=== PATIENT | female | born 1940 | race Caucasian/White ===

== ENCOUNTER → 2016-07-30 | Outpatient (CLI) | payer OTHER ==
[~2016-07-30] MED LIST: ASPI81TA28 PO; CHOL100010 PO; CLOB-65 EXT; FLEC100T21 PO; HYDR200T5 PO; HYDR25TA5 PO; METO50TA17 PO; MULT-506 PO; OMG3 PO; SIMV20TA2 PO; WARF1TAB6 PO; WARF2TAB8 PO
[2016-07-30 17:56] LABS: BLOOD UREA NITROGEN 15 mg/dl (7-18); BUN/CREATININE RATIO 17.9 (10-20); CALCIUM 9.6 mg/dl (8.5-10.1); CARBON DIOXIDE 31 mmol/L (21-32); CHLORIDE 102 mmol/L (98-107); CREATININE 0.86 mg/dl (0.60-1.20); GLUCOSE 96 mg/dl (70-99); SODIUM 140 mmol/L (136-145)
== END | disposition home or self-care (01) ==
LOC: C.LABMFLN 09:20
PROVIDERS: ATTEND Internal Medicine Cardiovascular Disease
DX: I10 Essential (primary) hypertension (principal); I47.1 Supraventricular tachycardia

== ENCOUNTER 2023-09-29 07:54 | Observation (INO) ==
--- NOTE | 2023-09-29 08:17 | Emergency Department Note ---
Impression & Plan Chest pain, HTN (hypertension), Acute hyponatremia ED Provider Note NAME: ALEX SERVIN AGE: 83 SEX: F : 1940 ARRIVES VIA: Walk-In INFORMANT: Patient ED PROVIDER(S): Kobi Murphy DO CHIEF COMPLAINT: Chest pressure HPI: Patient is an 83-year-old female with a past medical history of A-fib, depression, anxiety, SVT who presents to the ER for chest pressure. She notes that she woke up around 330 to 4 AM. She had chest pressure in the middle of her chest that lasted for about 30 minutes. She had tingling in her bilateral arms. This lasted for a total of 30 minutes and then both resolved. She denies any belly pain, nausea, vomiting, or diarrhea. No dysuria, urgency, or frequency. No other exacerbating or remitting factors. ADDITIONAL HISTORY OBTAINED: Per HPI Chronic Medical/Social Conditions Affecting Care: Per HPI PAST MEDICAL HISTORY:See Below PAST SURGICAL HISTORY:See Below FAMILY HISTORY:See Below SOCIAL HISTORY:See Below HOME MEDICATIONS:See Below ALLERGIES:See Below VITALS:See Below PHYSICAL EXAMINATION: GENERAL: Sitting up in bed, alert, well appearing, well nourished, no distress, non-toxic EYE EXAM: normal conjunctiva. OROPHARYNX: no exudate, no erythema, lips, buccal mucosa, and tongue normal and mucous membranes are moist NECK: supple, no nuchal rigidity, no adenopathy, non-tender LUNGS: Clear to auscultation. Normal chest wall mechanics HEART: no murmurs, S1 normal and S2 normal ABDOMEN: abdomen soft, non-tender, normo-active bowel sounds, no masses, no rebound or guarding. BACK: Back is symmetrical on inspection and there is no deformity, no midline tenderness, no CVA tenderness. SKIN: no rashes and no bruising UPPER EXTREMITIES: upper extremities are grossly normal. LOWER EXTREMITIES: No pitting edema. Calves are equal bilaterally NEURO EXAM: Normal sensorium, cranial nerves II-XII grossly intact, normal speech, no gross weakness of arms, no gross weakness of legs. MEDICAL DECISION MAKING: Patient is a 3-year-old female who presents ER for the above-stated complaint. IV was established blood work was obtained. Labs show no significant leukocytosis or anemia. INR unremarkable. BMP with mild hyponatremia at 130. LFTs bilirubin was unremarkable. Troponins were negative x 2. Lipase was normal. Chest x-ray was clean. Patient was significantly hypertensive with systolic pressures in the 200s and Vesselon was placed on Nitropaste. Trended down to 180s. I discussed case with the hospitalist for further evaluation management treatment. Consults/Care Managements Discussions: Per [facility] Triage Nursing notes reviewed. Limited review of prior medical records performed Vital Signs: reviewed and remarkable for HTN Differential diagnosis: Cardiac ischemia, aortic dissection, pulmonary embolism, pneumothorax, pneumonia, pericarditis, myocarditis, esophageal rupture, GERD, cholecystitis, pancreatitis, musculoskeletal, as well as other pathologies. ER treatment provided: See below Diagnostics interpreted by me include EKG and cardiac monitoring as listed below: -Cardiac Monitoring: An order was placed for continuous cardiac monitoring. The monitor shows a rate of 80 with sinus rhythm. -ECG: Sinus rhythm rate of 75 Normal axis No PVCs QTc [address] changes in the lateral leads -Laboratory studies:Interpreted by me as stated above in MDM and shown below. Imaging studies: Xrays: As interpreted by me: Portable AP upright 1 view of the chest shows no focal infiltrate CTs show: none Procedures:none Critical Care: None Past Med/Surg History Problem List (Updated 09/29/23 @ 13:03 by Kobi Murphy DO) Acute hyponatremia (Acute) HTN (hypertension) (Acute) Chest pain (Acute) Hypercalcemia New onset a-fib Myalgia Frequent urination Bronchitis Wheeze Rash and nonspecific skin eruption Venous stasis dermatitis Anticoagulant long-term use Depression Multiple thyroid nodules Menopause Antiphospholipid antibody syndrome (Chronic) Anxiety (Chronic) Zenker diverticulum Varicose vein of leg Dyslipidemia HTN (hypertension) (Chronic) Paroxysmal atrial tachycardia SVT (supraventricular tachycardia) (Chronic) Medical History Wheeze Venous stasis dermatitis Hypokalemia Zenker diverticulum Varicose vein of leg Dyslipidemia Paroxysmal atrial tachycardia HTN (hypertension) Anxiety SVT (supraventricular tachycardia) Antiphospholipid antibody syndrome Surgical History History of cholecystectomy History of appendectomy H/O knee surgery H/O tubal ligation H/O: hysterectomy Family History Mother Colorectal cancer, Onset Age: 83 Father Heart disease Sister Cancer Leukemia Denies family history of Ovarian cancer Prostate cancer Myocardial infarction Breast cancer Social History (Updated 07/20/23 @ 09:34 by Vonnie Rutherford LPN) Smoking Status: Never smoker Second Hand Exposure: No; Do You Dip or Chew Tobacco: No; Hx Alcohol Use: No Hx Substance Use: No Preferred Language: Hebrew Visual Impairment: Partially Limited Hearing Ability: Normal marital status: Current Living Situation: Spouse current occupational status: retired 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 How many Children do You have: 2 Feels Safe at Home: Yes Childhood Exposure to Second-Hand Smoke: No Diet: regular caffeine: No during the past year weight has: remained stable Dental Care, Regularly: Yes Physical Activity Frequency: Does not Exercise Seatbelt Use: always Sunscreen Use: No Do you think of yourself as: straight/heterosexual Gender Identity: Female Assistive Devices: Glasses Allergies Allergies Allergy/AdvReac Type Severity Reaction Status Date / Time prednisone Allergy Unknown rapid Verified 09/29/23 09:53 heart rate Sulfa (Sulfonamide Allergy Unknown hives Verified 09/29/23 09:53 Antibiotics) benazepril AdvReac Unknown COUGH Verified 09/29/23 09:53 Home Meds Home Medications Medication Instructions Recorded Confirmed multivitamin (Multiple Vitamins 1 tab PO QAM 02/14/19 09/29/23 tablet) cholecalciferol (vitamin D3) 25 2,000 unit PO DAILY 05/24/20 09/29/23 mcg (1,000 unit) capsule omega 6-giz-dam-fish oil 1,000 mg 1 cap PO DAILY 01/13/23 09/29/23 (120 mg-180 mg) capsule (Fish Oil) hydroxychloroquine 200 mg tablet 200 mg PO Q OTHER DAY 09/29/23 09/29/23 Previous Rx's Medication Instructions Recorded potassium chloride 20 mEq 20 meq PO BID #180 tabs 11/10/22 tablet,extended release triamcinolone acetonide 0.1 % 1 applic topical BID #30 grams 12/16/22 topical cream famotidine 10 mg tablet 10 mg PO DAILY PRN heartburn #30 01/05/23 tabs losartan 50 mg tablet 50 mg PO BID #180 tabs 01/07/23 simvastatin 20 mg tablet 20 mg PO DAILY #90 tabs 04/08/23 desonide 0.05 % topical ointment 1 applic topical BID PRN skin 06/19/23 irritation #15 grams buspirone 5 mg tablet 10 mg (2 x 5 mg) PO BID #120 tabs 07/20/23 hydrochlorothiazide 25 mg tablet 25 mg PO DAILY #90 tabs 07/20/23 metoprolol succinate 50 mg 50 mg PO BID #60 tabs 09/04/23 tablet,extended release 24 hr warfarin 2 mg tablet 2 mg PO QPM #90 tabs 09/14/23 Results & Data (ED) Vital Signs Vital Signs - 24 hr 09/29/23 07:58 09/29/23 08:12 09/29/23 08:12 Temperature 36.4 C L Temperature Source Oral Pulse Rate 76 Pulse Rate [Apical] 74 Pulse Rate from SpO2 Sensor Respiratory Rate 16 16 Respiratory Effort / Characteristics Non-Labored Spontaneous Respiratory Depth Normal Blood Pressure 181/92 H Blood Pressure [Left Arm] 219/117 H Blood Pressure Mean 121 Blood Pressure Mean [Left Arm] 151 Pulse Oximetry 99 99 98 Oxygen Delivery Method Room Air Room Air Room Air Oxygen Flow Rate 0 Sepsis Recent Fever Within 48 Hours No Sepsis New/Unexplained Change in Mental Status N/A Sepsis Action Taken by Nursing No Action Required 09/29/23 08:26 09/29/23 08:27 09/29/23 08:44 Temperature Temperature Source Pulse Rate 71 83 59 L Pulse Rate [Apical] Pulse Rate from SpO2 Sensor 67 60 Respiratory Rate 14 15 Respiratory Effort / Characteristics Respiratory Depth Blood Pressure 187/86 H Blood Pressure [Left Arm] Blood Pressure Mean 119 Blood Pressure Mean [Left Arm] Pulse Oximetry 97 96 Oxygen Delivery Method Oxygen Flow Rate Sepsis Recent Fever Within 48 Hours Sepsis New/Unexplained Change in Mental Status Sepsis Action Taken by Nursing 09/29/23 09:30 09/29/23 10:00 09/29/23 10:45 Temperature Temperature Source Pulse Rate 76 62 81 Pulse Rate [Apical] Pulse Rate from SpO2 Sensor Respiratory Rate 20 16 19 Respiratory Effort / Characteristics Respiratory Depth Blood Pressure 188/92 H 195/109 H 211/97 H Blood Pressure [Left Arm] Blood Pressure Mean 124 137 150 Blood Pressure Mean [Left Arm] Pulse Oximetry 95 99 98 Oxygen Delivery Method Room Air Room Air Oxygen Flow Rate Sepsis Recent Fever Within 48 Hours Sepsis New/Unexplained Change in Mental Status Sepsis Action Taken by Nursing 09/29/23 11:00 Temperature Temperature Source Pulse Rate 81 Pulse Rate [Apical] Pulse Rate from SpO2 Sensor Respiratory Rate 18 Respiratory Effort / Characteristics Respiratory Depth Blood Pressure 217/106 H Blood Pressure [Left Arm] Blood Pressure Mean 143 Blood Pressure Mean [Left Arm] Pulse Oximetry 99 Oxygen Delivery Method Oxygen Flow Rate Sepsis Recent Fever Within 48 Hours Sepsis New/Unexplained Change in Mental Status Sepsis Action Taken by Nursing Laboratory Data 09/29/23 08:10 09/29/23 08:10 Lab Results 09/29/23 Range/Units 08:10 WBC 9.15 (4.8-10.8) K/ul RBC 4.36 (4.20-5.40) M/uL Hgb 14.3 (12.0-16.0) g/dl Hct 41.7 (37.0-47.0) % MCV 95.6 (80.0-100.0) fL MCH 32.8 (25.0-34.0) pg MCHC 34.3 (32.0-36.0) g/dL RDW Std Deviation 43.2 (36.4-46.3) fL RDW Coeff of Huber 12.3 (11.5-14.5) % Plt Count 240 (130-400) K/uL MPV 9.0 L (9.4-12.4) fL Immature Gran % (Auto) 0.4 % Neut % (Auto) 70.0 % Lymph % (Auto) 11.3 % [place] % (Auto) 16.5 % Eos % (Auto) 0.8 % Baso % (Auto) 1.0 % Neut # (Auto) 6.41 (1.40-6.50) K/uL Lymph # (Auto) 1.03 L (1.20-3.40) K/uL [place] # (Auto) 1.51 H (0.11-0.59) K/uL Eos # (Auto) 0.07 (0.00-0.50) K/uL Baso # (Auto) 0.09 (0.00-0.20) K/uL Immature Gran # (Auto) 0.04 (0.01-0.20) K/uL PT 20.9 H (9.0-12.0) Seconds INR 2.1 H (0.9-1.1) Sodium 130 L (136-145) mmol/L Potassium 3.8 (3.5-5.1) mmol/L Chloride 94 L (98-107) mmol/L Carbon Dioxide 30 (21-32) mmol/L Anion Gap 6 (3-11) BUN 15 (6-23) mg/dl Creatinine 0.81 (0.6-1.2) mg/dl Est Cr Clr Drug Dosing 65.5 ml/min Est GFR ( Amer) 77.8 ml/min Est GFR (Non-Af Amer) 67.2 ml/min BUN/Creatinine Ratio 18.5 (10-20) Glucose 107 H (70-99(Fasting)) mg/dl Calcium 9.8 (8.6-10.3) mg/dl Total Bilirubin 0.7 (0.2-1.0) mg/dl AST 20 (13-39) U/L ALT 18 (7-52) U/L Alkaline Phosphatase 53 (34-104) U/L Troponin I High Sens 9.4 (0-14) pg/ml Total Protein 7.9 (6.0-8.3) gm/dl Albumin 4.6 (3.4-5.0) gm/dl Globulin 3.3 (2.5-4.0) gm/dl Albumin/Globulin Ratio 1.4 (0.9-2) Lipase 34 (11-82) U/L Administered Medications Nitroglycerin (Nitroglycerin 2% Ointment 30gm Tube) 1 inch EXT Q6H [facility] Stop: 10/29/23 11:29 Last Admin: 09/29/23 12:49 Dose: Not Given Documented By: ANG Discontinued Medications Aspirin (Aspirin Chew 324 Mg) 324 mg PO NOW STA Stop: 09/29/23 08:16 Last Admin: 09/29/23 08:45 Dose: 324 mg Documented By: HS Nitroglycerin (Nitroglycerin 2% Ointment 30gm Tube) 0.5 inch EXT Q6H JULIA Stop: 10/29/23 09:29 Last Admin: 09/29/23 10:03 Dose: 0.5 inch Documented By: KV Imaging Data Radiologist's Impression: Chest X-Ray 09/29/23 08:03 XR chest 1V portable HISTORY: 83 years-old Female Chest pain, nonspecific COMPARISON: 06/25/2023 TECHNIQUE: AP view of the chest FINDINGS: Cardiac silhouette is enlarged. Pulmonary vascular congestion. No pneumothorax, large pleural effusion or lobar airspace consolidation. Mild bibasilar densities suggest atelectasis. Bones appear grossly intact. IMPRESSION: Cardiomegaly with pulmonary vascular congestion. ACT 112: Negative or not required by law. The above report was generated using voice recognition software. It may contain grammatical, syntax or spelling errors. Electronically signed by: Eder Ellis M.D. 09/29/2023 9:06 AM Discharge Plan Visit Data Chief Complaint: Cardiac Assessment Stated Complaint: AFIB, REF BY DOC ED Provider: Kobi Murphy Discharge Problem: Chest pain, HTN (hypertension), Acute hyponatremia Patient Disposition: Admitted As Inpatient Discharge Instructions Interventions: ED Discharge Assessment Last Done: 09/29/23 12:28 Discharge Problem: Chest pain Qualifiers: Chest pain type: unspecified Qualified Code(s): R07.9 - Chest pain, unspecified HTN (hypertension) Qualifiers: Hypertension type: unspecified Qualified Code(s): I10 - Essential (primary) hypertension
[2023-09-29 08:25] LABS: Basophils # (auto) 0.09 K/uL (0.00-0.20); Eosinophils # (auto) 0.07 K/uL (0.00-0.50); Eosinophils % (auto) 0.8 %; Hematocrit (blood only) 41.7 % (37.0-47.0); Hemoglobin 14.3 g/dl (12.0-16.0); Immature Granulocytes # (auto) 0.04 K/uL (0.01-0.20); Immature Granulocytes % (auto) 0.4 %; Lymphocytes # (auto) 1.03 K/uL (1.20-3.40); Lymphocytes % (auto) 11.3 %; Mean Corpuscular Hemoglobin 32.8 pg (25.0-34.0); Mean Corpuscular Hgb Conc 34.3 g/dL (32.0-36.0); Mean Corpuscular Volume 95.6 fL (80.0-100.0); Monocytes # (auto) 1.51 K/uL (0.11-0.59); Monocytes % (auto) 16.5 %; Neutrophils # (auto) 6.41 K/uL (1.40-6.50); Platelet Count 240 K/uL (130-400); RDW Coefficient of Variation 12.3 % (11.5-14.5); RDW Standard Deviation 43.2 fL (36.4-46.3); Red Blood Count 4.36 M/uL (4.20-5.40); White Blood Count 9.15 K/ul (4.8-10.8)
[2023-09-29] MEDS: ASPIRIN CHEW 324 MG PO STA (08:45)
[2023-09-29 08:47] LABS: Albumin Globulin Ratio 1.4 (0.9-2); Albumin Level 4.6 gm/dl (3.4-5.0); BUN Creatinine Ratio 18.5 (10-20); Bilirubin,Total 0.7 mg/dl (0.2-1.0); Calcium 9.8 mg/dl (8.6-10.3); Creatinine Clr Calc Pharmacy 65.5 ml/min; Est GFR (African American) 77.8 ml/min; Est GFR (Non-African American) 67.2 ml/min; Globulin 3.3 gm/dl (2.5-4.0); Potassium 3.8 mmol/L (3.5-5.1); Total Protein 7.9 gm/dl (6.0-8.3)
[2023-09-29 08:54] LABS: Troponin I High Sensitivity 9.4 pg/ml (0-14)
[2023-09-29 08:57] LABS: INR 2.1 (0.9-1.1); Prothrombin Time 20.9 Seconds (9.0-12.0)
--- NOTE | 2023-09-29 09:09 | XRay Report ---
XR chest 1V portable HISTORY: 83 years-old Female Chest pain, nonspecific COMPARISON: 06/25/2023 TECHNIQUE: AP view of the chest FINDINGS: Cardiac silhouette is enlarged. Pulmonary vascular congestion. No pneumothorax, large pleural effusio n or lobar airspace consolidation. Mild bibasilar densities suggest atelectasis. Bones appear grossly intact. IMPRESSION: Cardiomegaly with pulmonary vascular congestion. ACT 112: Negative or not required by law. The above report was generated using voice recognition software. It may contain grammatical, syntax o r spelling errors. Electronically signed by: Eder Ellis M.D. 09/29/2023 9:06 AM
[2023-09-29] MEDS: NITROGLYCERIN 2% OINTMENT 30GM TUBE EXT SCH ×2 (10:03→12:49)
--- NOTE | 2023-09-29 10:39 | History & Physical Report ---
Date of Service September 29, 2023 Assessment & Plan (1) Chest pain: Plan: r/o MS. History of arrhythmias (paroxysmal atrial tachycardia, possible a. fib) - monitor on telemetry vs hypertensive emergency/urgency Increase nitroglycerin to 1 inch paste to help with her BP and monitor for hypotension Serial troponins TTE (2) Acute hyponatremia: Plan: Mild, ?due to HCTZ vs. mild congestion on CXR Monitor with AM labs (3) Paroxysmal atrial tachycardia: Plan: Monitor on telemetry (4) Antiphospholipid antibody syndrome: Plan: Reason for warfarin use Plan VTE Prophylaxis - therapeutic warfarin Diet - heart healthy Disposition - observation on PCU Admission and Anticipated Discharge Date Admission Date: September 29, 2023 History of Present Illness Chief Complaint: Chest heaviness Primary Care Provider: DO Gerald Smithsanket Layton is an 83 year old female who presents to the ER with chest tightness and tingling in her arms. 30 minutes of chest pressure and tingling in bilateral arms that started when she woke up around 3:30-4am this morning. Did not notice any palpitations. Associated feeling of washed out. Had similar feelings in the past but this morning was more prominent. Generalized weakness ongoing for months but worse the last couple of days - thinks this may be related to increased metoprolol and feeling nauseous about an hour after taking it. No known prior coronary artery disease but she does have a significant history of paroxysmal atrial tachycardia/SVT, PACs and PVCs but she reports not usually having symptoms with this. She took all her usual medications this morning. She notes significant white coat hypertension. No prior episodes of hypertension. Allergies Allergy/AdvReac Type Severity Reaction Status Date / Time prednisone Allergy Unknown rapid Verified 09/29/23 09:53 heart rate Sulfa (Sulfonamide Allergy Unknown hives Verified 09/29/23 09:53 Antibiotics) benazepril AdvReac Unknown COUGH Verified 09/29/23 09:53 Home Medications Medication Instructions Recorded Confirmed Type multivitamin (Multiple Vitamins 1 tab PO QAM 02/14/19 09/29/23 History tablet) cholecalciferol (vitamin D3) 25 2,000 unit PO DAILY 05/24/20 09/29/23 History mcg (1,000 unit) capsule potassium chloride 20 mEq 20 meq PO BID #180 tabs 07/17/23 06/04/24 Rx tablet,extended release triamcinolone acetonide 0.1 % 1 applic topical BID #30 grams 12/16/22 09/29/23 Rx topical cream famotidine 10 mg tablet 10 mg PO DAILY PRN heartburn #30 01/05/23 09/29/23 Rx tabs losartan 50 mg tablet 50 mg PO BID #180 tabs 01/07/23 09/29/23 Rx omega 8-gaf-sgy-fish oil 1,000 mg 1 cap PO DAILY 01/13/23 09/29/23 History (120 mg-180 mg) capsule (Fish Oil) simvastatin 20 mg tablet 20 mg PO DAILY #90 tabs 04/08/23 09/29/23 Rx desonide 0.05 % topical ointment 1 applic topical BID PRN skin 06/19/23 09/29/23 Rx irritation #15 grams buspirone 5 mg tablet 10 mg (2 x 5 mg) PO BID #120 tabs 07/20/23 09/29/23 Rx hydrochlorothiazide 25 mg tablet 25 mg PO DAILY #90 tabs 07/20/23 09/29/23 Rx metoprolol succinate 50 mg 50 mg PO BID #60 tabs 09/04/23 09/29/23 Rx tablet,extended release 24 hr warfarin 2 mg tablet 2 mg PO QPM #90 tabs 09/14/23 09/29/23 Rx hydroxychloroquine 200 mg tablet 200 mg PO Q OTHER DAY 09/29/23 09/29/23 History Past Med/Surg History Problem List (Updated 09/29/23 @ 13:03 by Kobi Murphy DO) Acute hyponatremia (Acute) HTN (hypertension) (Acute) Chest pain (Acute) Hypercalcemia New onset a-fib Myalgia Frequent urination Bronchitis Wheeze Rash and nonspecific skin eruption Venous stasis dermatitis Anticoagulant long-term use Depression Multiple thyroid nodules Menopause Antiphospholipid antibody syndrome (Chronic) Anxiety (Chronic) Zenker diverticulum Varicose vein of leg Dyslipidemia HTN (hypertension) (Chronic) Paroxysmal atrial tachycardia SVT (supraventricular tachycardia) (Chronic) Medical History Wheeze Venous stasis dermatitis Hypokalemia Zenker diverticulum Varicose vein of leg Dyslipidemia Paroxysmal atrial tachycardia HTN (hypertension) Anxiety SVT (supraventricular tachycardia) Antiphospholipid antibody syndrome Surgical History History of cholecystectomy History of appendectomy H/O knee surgery H/O tubal ligation H/O: hysterectomy Family History Mother Colorectal cancer, Onset Age: 83 Father Heart disease Sister Cancer Leukemia Denies family history of Ovarian cancer Prostate cancer Myocardial infarction Breast cancer Social History (Updated 07/20/23 @ 09:34 by Vonnie Rutherford LPN) Smoking Status: Never smoker Second Hand Exposure: No; Do You Dip or Chew Tobacco: No; Hx Alcohol Use: No Hx Substance Use: No Preferred Language: Portuguese Communication Ability: Effective Visual Impairment: Partially Limited Hearing Ability: Normal Svp Chief Marketing Officer Required: No Beliefs That Will Affect Care: None marital status: Current Living Situation: Spouse 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 How many Children do You have: 2 Feels Safe at Home: Yes Safety Concerns: Feels Safe At This Time Childhood Exposure to Second-Hand Smoke: No Diet: regular caffeine: No during the past year weight has: remained stable Dental Care, Regularly: Yes Physical Activity Frequency: Does not Exercise Seatbelt Use: always Sunscreen Use: No Do you think of yourself as: straight/heterosexual Gender Identity: Female Assistive Devices: Glasses Review of Systems Review of Systems: All systems reviewed & are unremarkable except as noted in HPI & below Intermittent diarrhea Physical Exam Constitutional: WD/WN, vitals as above Eyes: PERRL, conjunctivae normal, anicteric sclerae ENMT: external ear and nose normal, oropharynx normal Respiratory: normal respiratory effort, lungs clear to auscultation Cardiovascular: Rate/Rhythm: regular rate and + irregularly irregular Heart Sounds: no murmur Extremities: normal capillary refill; no calf tenderness and no pedal edema Gastrointestinal (Abdomen): normal bowel sounds, soft, nontender, no hepatosplenomegaly Musculoskeletal: no cyanosis or clubbing, extremities motor strength 5/5 Skin: no rashes, warm and dry Neurologic: moves all extremities and awake; not confused Psychiatric: A+Ox3, euthymic affect Genitourinary: no CVA tenderness Results & Data Results & Data Vital Signs (Past 12 Hours) Vital Signs Temp Pulse Pulse Resp BP BP Pulse Ox 09/29/23 08:44 59 L 15 187/86 H 96 09/29/23 08:27 83 09/29/23 08:26 71 14 97 09/29/23 08:12 74 16 219/117 H 98 09/29/23 08:12 99 09/29/23 07:58 36.4 C L 76 16 181/92 H 99 O2 Del Method O2 Flow Rate 09/29/23 08:44 09/29/23 08:27 09/29/23 08:26 09/29/23 08:12 Room Air 09/29/23 08:12 Room Air 0 09/29/23 07:58 Room Air Laboratory Results Abnormal lab results 09/29/23 Range/Units 08:10 MPV 9.0 L (9.4-12.4) fL Lymph # (Auto) 1.03 L (1.20-3.40) K/uL [place] # (Auto) 1.51 H (0.11-0.59) K/uL PT 20.9 H (9.0-12.0) Seconds INR 2.1 H (0.9-1.1) Sodium 130 L (136-145) mmol/L Chloride 94 L (98-107) mmol/L Glucose 107 H (70-99(Fasting)) mg/dl Diagnostic Findings XR chest 1V portable HISTORY: 83 years-old Female Chest pain, nonspecific COMPARISON: 06/25/2023 TECHNIQUE: AP view of the chest FINDINGS: Cardiac silhouette is enlarged. Pulmonary vascular congestion. No pneumothorax, large pleural effusion or lobar airspace consolidation. Mild bibasilar densities suggest atelectasis. Bones appear grossly intact. IMPRESSION: Cardiomegaly with pulmonary vascular congestion. Medications Administered ER Medications Given: ASA 324mg PO Nitroglycerin 0.5 inch ECG Rate (beats per minute): 75 Rhythm: normal sinus Findings: + PAC Comparison ECG Date: from (Jun 25, 2023) Change: the following changes noted (SR replaced atrial fibrillation) Code Status & VTE Plan Code Status Full VTE Prophylaxis Plan VTE Prophylaxis will be ordered: Yes PG Care Time/CCT Total # of Minutes Spent Total Time Spent with Patient: Total time spent is greater than 50% in coordination of care (as documented) at patient's floor/unit and/or counseling patient: Coding Level of Care Code 34191 INT INP/OBS CARE 2/55MIN Diagnoses Chest pain R07.9 Chest pain type: unspecified Acute hyponatremia E87.1 Paroxysmal atrial tachycardia I47.1 Antiphospholipid antibody syndrome D68.61 (1) Chest pain Chest pain type: unspecified Qualified Code(s): R07.9 - Chest pain, unspecif ied
[2023-09-29 12:16] LABS: Troponin I High Sensitivity 10.4 pg/ml (0-14)
[2023-09-29] MEDS: WARFARIN SOD 2 MG TAB PO SCH (17:48)
[2023-09-29] MEDS: TRIAMCINOLONE ACET 0.1% CR 15 GM TUBE TOP SCH (20:22)
[2023-09-29] MEDS: METOPROLOL SUCC 50MG EXT REL TAB PO SCH (20:24)
[2023-09-29] MEDS: LOSARTAN POTASSIUM 50 MG TAB PO SCH (20:24)
[2023-09-29] MEDS: POTASSIUM CHLORIDE CRTAB 20 MEQ TABCR PO SCH (20:24)
[2023-09-29] MEDS: busPIRone 5 MG TAB PO SCH (21:40)
[2023-09-30 06:38] LABS: Basophils # (auto) 0.06 K/uL (0.00-0.20); Basophils % (auto) 0.9 %; Eosinophils # (auto) 0.14 K/uL (0.00-0.50); Eosinophils % (auto) 2.1 %; Hemoglobin 13.4 g/dl (12.0-16.0); Immature Granulocytes # (auto) 0.02 K/uL (0.01-0.20); Immature Granulocytes % (auto) 0.3 %; Lymphocytes # (auto) 0.97 K/uL (1.20-3.40); Lymphocytes % (auto) 14.3 %; Mean Corpuscular Hemoglobin 32.4 pg (25.0-34.0); Mean Corpuscular Hgb Conc 34.4 g/dL (32.0-36.0); Mean Corpuscular Volume 94.2 fL (80.0-100.0); Mean Platelet Volume 9.7 fL (9.4-12.4); Monocytes # (auto) 1.17 K/uL (0.11-0.59); Monocytes % (auto) 17.2 %; Neutrophils # (auto) 4.44 K/uL (1.40-6.50); Neutrophils % (auto) 65.2 %; Platelet Count 218 K/uL (130-400); RDW Coefficient of Variation 12.3 % (11.5-14.5); Red Blood Count 4.14 M/uL (4.20-5.40)
[2023-09-30 07:05] LABS: BUN Creatinine Ratio 20.5 (10-20); Calcium 9.3 mg/dl (8.6-10.3); Creatinine Clr Calc Pharmacy 67.3 ml/min; Est GFR (African American) 81.5 ml/min; Est GFR (Non-African American) 70.3 ml/min; Magnesium 1.6 mg/dl (1.7-2.4); Potassium 4.2 mmol/L (3.5-5.1)
[2023-09-30] MEDS: CHOLECALCIFEROL 25 MCG (1000 UNITS) TAB PO SCH (08:34)
[2023-09-30] MEDS: MULTIVITAMIN TAB PO SCH (08:34)
[2023-09-30] MEDS: HYDROXYCHLOROQUINE SULFATE 200 MG TAB PO SCH (08:35)
[2023-09-30] MEDS: SIMVASTATIN 20 MG TAB PO SCH (08:36)
[2023-09-30] MEDS: hydroCHLOROthiazide 25 MG TAB PO SCH (08:37)
[2023-09-30] MEDS: OMEGA-3 (PURIFIED FISH OIL) 1 GM CAP PO SCH (08:37)
[2023-09-30] MEDS: amLODIPine BESYLATE 5 MG TAB PO SCH (11:22)
--- NOTE | 2023-09-30 17:38 | XCELERA ---
[id number] [id number]
--- NOTE | 2023-09-30 19:05 | Discharge Summary ---
Discharge Summary Date of Service September 30, 2023 Principal Dx & Hospital Course #1 = Principal Diagnosis (1) Chest pain: Presents with chest pressure and bilateral arm tingling in the setting of hypertensive urgency. Symptoms resolved with improvement in blood pressure. Serial troponin was negative x 5 Echocardiogram with preserved EF 65-70%, moderate LVH, mild MR, no wall motion abnormalities No arrhythmias on telemetry-she had normal sinus rhythm and PACs with rates in the 50s to 70s She was initially placed on Nitropaste but this was discontinued and replaced with amlodipine 5 mg daily Her HCTZ will be switched to Lasix 20 mg p.o. every morning to improve her hyponatremia Check BMP in 1 week with PCP Stable for discharge home (2) Acute hyponatremia: Likely due to HCTZ as this has been chronic and ongoing Switching HCTZ to furosemide Check BMP in 1 week (3) Paroxysmal atrial tachycardia: Had none while here No atrial fibrillation either Continue Coumadin for paroxysmal atrial fibrillation Continue metoprolol succinate 50 Mg p.o. twice daily (4) Antiphospholipid antibody syndrome: Reason for warfarin use-INR therapeutic care Continue Coumadin Plan VTE Prophylaxis - therapeutic warfarin Disposition -stable for discharge home Notes For Next Care Provider Follow blood pressure closely with recent medication changes-patient will keep a log at home as she has in the past Check BMP in 1 week as starting furosemide and to see if sodium levels improved with stopping HCTZ Medication Changes From Visit Added amlodipine 5 mg p.o. daily Added furosemide 20 mg p.o. daily Decreased potassium chloride to 20 mill equivalents p.o. once daily down from twice daily Admission HPI Per Admitting Provider Stephanie Layton is an 83 year old female who presents to the ER with chest tightness and tingling in her arms. 30 minutes of chest pressure and tingling in bilateral arms that started when she woke up around 3:30-4am this morning. Did not notice any palpitations. Associated feeling of washed out. Had similar feelings in the past but this morning was more prominent. Generalized weakness ongoing for months but worse the last couple of days - thinks this may be related to increased metoprolol and feeling nauseous about an hour after taking it. No known prior coronary artery disease but she does have a significant history of paroxysmal atrial tachycardia/SVT, PACs and PVCs but she reports not usually having symptoms with this. She took all her usual medications this morning. She notes significant white coat hypertension. No prior episodes of hypertension. Discharge Exam Constitutional WD/WN, vitals as above Neck trachea midline, no thyromegaly Respiratory normal respiratory effort, lungs clear to auscultation Cardiovascular RRR, no murmur, no edema Chest (Breasts) Chest: normal inspection of chest Gastrointestinal (Abdomen) normal bowel sounds, soft, nontender, no hepatosplenomegaly Musculoskeletal Extremities: extremities normal to inspection; no cyanosis and no clubbing Skin Chronic venous stasis dermatitis changes on her legs Varicose veins Neurologic moves all extremities and awake; no focal motor deficits Psychiatric A+Ox3, euthymic affect Updated Medication List Medication Instructions Recorded Confirmed Type multivitamin (Multiple Vitamins 1 tab PO QAM 02/14/19 09/29/23 History tablet) cholecalciferol (vitamin D3) 25 2,000 unit PO DAILY 05/24/20 09/29/23 History mcg (1,000 unit) capsule triamcinolone acetonide 0.1 % 1 applic topical BID #30 grams 12/16/22 09/29/23 Rx topical cream famotidine 10 mg tablet 10 mg PO DAILY PRN heartburn #30 01/05/23 09/29/23 Rx tabs losartan 50 mg tablet 50 mg PO BID #180 tabs 01/07/23 09/29/23 Rx omega 4-rxk-tvi-fish oil 1,000 mg 1 cap PO DAILY 01/13/23 09/29/23 History (120 mg-180 mg) capsule (Fish Oil) simvastatin 20 mg tablet 20 mg PO DAILY #90 tabs 04/08/23 09/29/23 Rx desonide 0.05 % topical ointment 1 applic topical BID PRN skin 06/19/23 09/29/23 Rx irritation #15 grams buspirone 5 mg tablet 10 mg (2 x 5 mg) PO BID #120 tabs 07/20/23 09/29/23 Rx hydrochlorothiazide 25 mg tablet 25 mg PO DAILY #90 tabs 07/20/23 09/29/23 Rx metoprolol succinate 50 mg 50 mg PO BID #60 tabs 09/04/23 09/29/23 Rx tablet,extended release 24 hr warfarin 2 mg tablet 2 mg PO QPM #90 tabs 09/14/23 09/29/23 Rx hydroxychloroquine 200 mg tablet 200 mg PO Q OTHER DAY 09/29/23 09/29/23 History amlodipine 5 mg tablet (Norvasc) 5 mg PO QAM #30 tabs 09/30/23 Rx furosemide 20 mg tablet 20 mg PO QAM #30 tabs 09/30/23 Rx potassium chloride 20 mEq 20 meq PO QAM #30 tabs 09/30/23 Rx tablet,extended release Hospital Stay Data Consultations 09/29/23 09:47 ED Decision to Admit Stat Procedures Performed Echocardiogram Diagnostic Imagining Performed Chest x-ray Pending Results Patient Have Any Pending Studies at Discharge: No Discharge Instructions Given to Patient (Per Discharging Provider) You were admitted with chest pressure and tingling in the arms likely due to your extremely elevated blood pressures. Your blood pressure was better controlled with the addition of a medication called amlodipine. Because of your low sodium levels, your HCTZ will be changed to furosemide. You can cut down on your dose of potassium chloride to 20 mEq once daily rather than twice daily. Please have your PCP check your blood work for basic metabolic panel in about 1 week. The echocardiogram of your heart did not reveal any evidence of heart failure or heart attack. The blood test for heart attack were also negative on 5 occasions. Please keep track of your blood pressures at home and review them with your primary care physician at your appointment on Thursday. You did not have any atrial fibrillation while you are here. You can try taking the famotidine at bedtime to help with your morning nausea that is been ongoing. Total Time Total Time Spent Total Time Spent (In Minutes): 35 minutes Total Time Includes: Examination of the Patient, Discharge Planning and Medication Reconciliation Coding Level of Care Code 77501 INP/OBS DISCH >30 MIN Diagnoses Chest pain R07.9 Chest pain type: unspecified Acute hyponatremia E87.1 Paroxysmal atrial tachycardia I47.1 Antiphospholipid antibody syndrome D68.61
--- NOTE | 2023-10-02 06:09 | Electrocardiogram Report ---
Test Reason : Blood Pressure : / mmHG Vent. Rate : 075 BPM Atrial Rate : 075 BPM P-R Int : 166 ms QRS Dur : 082 ms QT Int : 392 ms P-R-T Axes : 065 008 054 degrees QTc Int : 438 ms Sinus rhythm with Premature atrial complexes Otherwise normal ECG When compared with ECG of 25-JUN-2023 08:46, Sinus rhythm has replaced Atrial fibrillation Vent. rate has decreased BY 47 BPM Confirmed by Ernesto Flemnig ([id number]) on 10/02/2023 6:09:28 AM Referred By: Confirmed By:Ernesto Fleming
[2023-10-02] MEDS ORDERED: WARFARIN SOD 1 MG TAB PO SCH (16:00)
== END 2023-09-30 19:45 | disposition home or self-care (01) ==
LOC: ED 07:54 → EDINP 07:54 → SUATTDRO 11:24 → 4W 12:28